=== PATIENT | female | born 1955 | race Caucasian/White ===

== ENCOUNTER 2017-10-10 12:03 | Emergency (ER) | payer BC, OTHER ==
[~2017-10-10] VITALS: Ht 162.6 cm; Wt 80.5 kg
[~2017-10-10 12:03] MED LIST: ASPI81TA28 PO; CALCTAB5 PO; CHOL100010 PO; FLUO10CA24 PO; OMEG10007 PO
[2017-10-10 12:10] VITALS: TEMP 37; Ht 162.6 cm; Wt 80.5 kg
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
[2017-10-10 13:12] VITALS: BP 165/87; PULSE 59; O2SAT 95
== END 2017-10-10 13:14 | disposition home or self-care (01) ==
LOC: C.EDB 12:04 → C.EDD 13:14
DX: S52.572A Other intraarticular fracture of lower end of left radius, initial encounter for closed fracture (principal); S52.612A Displaced fracture of left ulna styloid process, initial encounter for closed fracture; W01.198A Fall on same level from slipping, tripping and stumbling with subsequent striking against other object, initial encounter; Z79.82 Long term (current) use of aspirin; Z79.899 Other long term (current) drug therapy